=== PATIENT | male | born 1965 | race Hispanic/Latino ===

== ENCOUNTER 2023-01-13 10:30 | Outpatient (CLI) | payer BC ==
[2023-01-13] MEDS ORDERED: Magnevist 469MG/ML 20 ML VIAL ONE (12:36)
== END 2023-01-13 10:31 | disposition home or self-care (01) ==
LOC: MRI 10:30
PROVIDERS: ATTEND Radiology Radiation Oncology
DX: D32.0 Benign neoplasm of cerebral meninges (principal)
CPT/HCPCS: 70553; A9579

== ENCOUNTER 2025-01-12 09:42 | Outpatient (CLI) | payer BC ==
[2025-01-12 11:17] LABS: Estimated GFR - POC 101.0
== END 2025-01-12 09:43 | disposition home or self-care (01) ==
LOC: SCSMRI 09:42
PROVIDERS: ATTEND Radiology Radiation Oncology
DX: D32.0 Benign neoplasm of cerebral meninges (principal); Z98.890 Other specified postprocedural states
CPT/HCPCS: 36415; 70553; 76376; 82565